=== PATIENT | female | born 1950 | race Two or more races ===

== ENCOUNTER 2022-07-12 05:40 | Day surgery (SDC) | payer OTHER ==
[~2022-07-12 05:40] MED LIST: ATORVASTATIN CA40 MG PO; COZAAR25 MG PO; GLUMETZA500 MG PO
[2022-07-12] MEDS ORDERED: MACROBID 100 M100 MG PO (12:27)
== END 2022-07-12 16:55 | disposition home or self-care (01) ==
LOC: CIR.AMB 05:40
PROVIDERS: ATTEND Obstetrics & Gynecology Gynecology
DX: N81.6 Rectocele (principal); N81.5 Vaginal enterocele; N81.11 Cystocele, midline; I10 Essential (primary) hypertension; D68.9 Coagulation defect, unspecified; Z20.822 Contact with and (suspected) exposure to COVID-19; R23.4 Changes in skin texture

== ENCOUNTER 2022-07-12 13:27 | Outpatient (CLI) | payer OTHER ==
[~2022-07-12 13:27] MED LIST changes: +MACROBID 100 M100 MG PO
== END 2022-07-12 13:28 | disposition home or self-care (01) ==
LOC: LAB 13:27
PROVIDERS: ATTEND Obstetrics & Gynecology Gynecology
DX: Z20.822 Contact with and (suspected) exposure to COVID-19 (principal)